=== PATIENT | female | born 1985 ===

== ENCOUNTER 2020-05-05 13:28 | Emergency (ER) | payer OTHER ==
[~2020-05-05] VITALS: Ht 167.6 cm; Wt 64.9 kg
== END 2020-05-05 15:53 | disposition home or self-care (01) ==
LOC: ER 13:28
DX: O43.891 Other placental disorders, first trimester (principal); O20.8 Other hemorrhage in early pregnancy; Z3A.08 8 weeks gestation of pregnancy